=== PATIENT | female | born 2000 | race Two or more races ===

== ENCOUNTER 2019-02-27 14:18 | Emergency (ER) | payer BC ==
[~2019-02-27] VITALS: Ht 160 cm; Wt 76.8 kg
[2019-02-27 14:38] VITALS: BP 121/74
[2019-02-27] MEDS ORDERED: IBUPROFEN 600 MG TABLET PO ONE (15:00)
[2019-02-27] MEDS ORDERED: IBUPROFEN 600 MG TABLET ONE (15:00)
--- NOTE | 2019-02-27 16:08 | NUR ---
PT GIVEN DC INSTRUCTIONS AND SCRIPT, EDUCATED REGARDING RX FOR TESSALON PERLES. PT A&O, RESPS EVEN AND UNLABORED, NADN AT DC.
== END 2019-02-27 16:09 | disposition home or self-care (01) ==
LOC: ED 16:03
DX: B34.9 Viral infection, unspecified (principal)
CPT/HCPCS: 87081; 87880; 99283

== ENCOUNTER 2019-03-02 14:20 | Emergency (ER) | payer BC ==
[~2019-03-02] VITALS: Ht 160 cm; Wt 75.0 kg
[2019-03-02] MEDS ORDERED: DIPHENHYDRAMINE 50 MG/ML, 1ML ONE (14:45)
[2019-03-02] MEDS ORDERED: FAMOTIDINE 20 MG/2 ML ONE (14:45)
[2019-03-02] MEDS ORDERED: methylPREDNISolone SOD SUCC 125 MG/2 ML ONE (14:45)
[2019-03-02] MEDS ORDERED: methylPREDNISolone SOD SUCC 125 MG/2 ML IVPush ONE (15:00)
[2019-03-02] MEDS ORDERED: DIPHENHYDRAMINE 50 MG/ML, 1ML IVPush ONE (15:00)
[2019-03-02] MEDS ORDERED: FAMOTIDINE 20 MG/2 ML IVPush ONE (15:00)
[2019-03-02] MEDS ORDERED: AZITHROMYCIN 500 MG TABLET ONE (15:25)
[2019-03-02] MEDS ORDERED: AZITHROMYCIN 500 MG TABLET PO ONE (15:30)
[2019-03-02] MEDS ORDERED: ALBUTEROL/IPRATROPIUM 2.5MG/0.5MG, 3 ML NPPB ONE (15:30)
[2019-03-02 15:42] VITALS: BP 111/68
[2019-03-02] MEDS ORDERED: ALBUTEROL/IPRATROPIUM 2.5MG/0.5MG, 3 ML ONE (15:46)
[2019-03-02] MEDS ORDERED: CEFTRIAXONE PMX 1GM/50ML 50 ML ONE (15:53)
--- NOTE | 2019-03-02 15:58 | NUR ---
PT RESTING IN [facility], RT AT BEDSIDE. IV ABX INFUSING. PT TO DC HOME AFTER DONE
[2019-03-02] MEDS ORDERED: CEFTRIAXONE PMX 1GM/50ML 50 ML IV ONE (16:00)
== END 2019-03-02 16:33 | disposition home or self-care (01) ==
LOC: ED 14:48
DX: J18.9 Pneumonia, unspecified organism (principal); L27.0 Generalized skin eruption due to drugs and medicaments taken internally
CPT/HCPCS: 71046; 94640; 96365; 96375; 99284; J0696; J1200; J2930; J3490

== ENCOUNTER 2019-03-16 03:40 | Emergency (ER) | payer BC ==
[~2019-03-16] VITALS: Ht 160 cm; Wt 74.3 kg
--- NOTE | 2019-03-16 03:54 | NUR ---
assessment made. chart up for MD to see.
--- NOTE | 2019-03-16 04:02 | NUR ---
ERP at bedside.
--- NOTE | 2019-03-16 04:58 | NUR ---
x ray resulted. re-evaluation done. patient discharged with prescriptions and instruction. verbalized understanding.
[2019-03-16 04:59] VITALS: BP 120/67
== END 2019-03-16 05:00 | disposition home or self-care (01) ==
LOC: ED 04:55
DX: J15.9 Unspecified bacterial pneumonia (principal)
CPT/HCPCS: 71046; 99283